=== PATIENT | female | born 1995 | race Caucasian/White ===

== ENCOUNTER 2023-06-24 14:30 | Emergency (ER) | payer OTHER, SELFPAY ==
[2023-06-24 14:41] VITALS: BP 126/97; PULSE 77; RESP 18; TEMP 36.6; O2SAT 98; BMI 27.5
--- NOTE | 2023-06-24 15:03 | CT_ITS ---
The [address] [address] Patient Name: YULIYA ALMEIDA MRN: [id number] date: 1995 Sex: F Assigned Patient Location: ER Current Patient Location: ED.MAIN Accession/Order Number: [id number] Exam Date: 06/24/2023 15:25 Report Date: 06/24/2023 15:53 At the request of: MARY SWIFT Procedure: CT head/brain wo con EXAM: CT head/brain wo con CLINICAL INDICATION: Headache TECHNIQUE: Unenhanced computerized tomography of the head was performed. Automated dose reduction technique was employed. COMPARISON: None. FINDINGS: The ventricles are normal in size, configuration, and position for age. There is no intra- or extra-axial mass, hemorrhage, or fluid collection. No areas of abnormal mass effect or attenuation are noted. Visualized paranasal sinuses are free of mucosal disease. No depressed calvarial fracture. CT/CT head/brain wo con IMPRESSION: No acute intracranial abnormality noted. Electronically authenticated by: TEODORO OWENS Date: 06/24/2023 15:53
--- NOTE | 2023-06-24 15:03 | CT_ITS ---
[address] [address] Patient Name: YULIYA ALMEIDA MRN: [id number] date: 1995 Sex: F Assigned Patient Location: ED.MAIN Current Patient Location: ED.MAIN Accession/Order Number: [id number] Exam Date: 06/24/2023 15:25 Report Date: 06/24/2023 16:28 At the request of: MARY SWIFT Procedure: CT angio neck EXAM: CT angio head, CT angio neck CLINICAL INDICATION: Headache, visual change COMPARISON: None TECHNIQUE: Contiguous axial images are obtained from the neck to the vertex before and after the administration of nonionic contrast. 2-D and 3-D reconstructions were performed to better evaluate the vasculature. NASCET criteria was utilized during interpretation of internal carotid artery stenosis. Automatic exposure control radiation dose reduction technology was utilized. FINDINGS: There are no vascular occlusions observed. The bilateral common and internal carotid arteries are grossly patent. Dominant left vertebral artery. The vertebral arteries, basilar artery and basilar artery bifurcation are otherwise normal. The posterior communicating arteries are not visualized on the source images. The internal carotid artery bifurcations, the middle cerebral artery bifurcation/trifurcation regions and the anterior communicating artery region appears normal. The posterior cerebral arteries appear intact in the visualized segments. The brain parenchyma is normal. The ventricles, basal cisterns, and sulci over the convexities are normal. Left maxillary sinus mucus retention cyst measures up to 1.6 cm. The orbits, visualized paranasal sinuses and bony calvarium are otherwise normal. The sella turcica and cavernous sinus regions appear intact. The mastoid air cells are normal. The fossa of Rosenmuller is normal. The parotid space contents and hand tube bender space contents appear intact. The parapharyngeal spaces are normal. The submandibular and sublingual space contents appear intact. The submental space is intact. The epiglottis, aryepiglottic folds, and piriform sinuses are normal. The vallecula appears normal. The larynx and trachea are normal. The thyroid lobes and esophagus appear intact. The carotid space contents are normal. There is no deep cervical chain adenopathy observed. The jugulodigastric regions appear intact. The perivertebral space contents are normal. The supraclavicular regions appear intact. The visualized mediastinum and lungs appear intact. Mild degenerative changes of the cervical spine. CT/CT angio neck IMPRESSION: No significant vascular occlusion, aneurysm or dissection. Electronically authenticated by: TEODORO OWENS Date: 06/24/2023 16:28
--- NOTE | 2023-06-24 15:03 | CT_ITS ---
[address] [address] Patient Name: YULIYA ALMEIDA MRN: [id number] date: 1995 Sex: F Assigned Patient Location: ER Current Patient Location: [facility] Accession/Order Number: [id number] Exam Date: 06/24/2023 15:25 Report Date: 06/24/2023 16:28 At the request of: MARY SWIFT Procedure: CT angio head EXAM: CT angio head, CT angio neck CLINICAL INDICATION: Headache, visual change COMPARISON: None TECHNIQUE: Contiguous axial images are obtained from the neck to the vertex before and after the administration of nonionic contrast. 2-D and 3-D reconstructions were performed to better evaluate the vasculature. NASCET criteria was utilized during interpretation of internal carotid artery stenosis. Automatic exposure control radiation dose reduction technology was utilized. FINDINGS: There are no vascular occlusions observed. The bilateral common and internal carotid arteries are grossly patent. Dominant left vertebral artery. The vertebral arteries, basilar artery and basilar artery bifurcation are otherwise normal. The posterior communicating arteries are not visualized on the source images. The internal carotid artery bifurcations, the middle cerebral artery bifurcation/trifurcation regions and the anterior communicating artery region appears normal. The posterior cerebral arteries appear intact in the visualized segments. The brain parenchyma is normal. The ventricles, basal cisterns, and sulci over the convexities are normal. Left maxillary sinus mucus retention cyst measures up to 1.6 cm. The orbits, visualized paranasal sinuses and bony calvarium are otherwise normal. The sella turcica and cavernous sinus regions appear intact. The mastoid air cells are normal. The fossa of Rosenmuller is normal. The parotid space contents and ballpoint pen cartridge tester space contents appear intact. The parapharyngeal spaces are normal. The submandibular and sublingual space contents appear intact. The submental space is intact. The epiglottis, aryepiglottic folds, and piriform sinuses are normal. The vallecula appears normal. The larynx and trachea are normal. The thyroid lobes and esophagus appear intact. The carotid space contents are normal. There is no deep cervical chain adenopathy observed. The jugulodigastric regions appear intact. The perivertebral space contents are normal. The supraclavicular regions appear intact. The visualized mediastinum and lungs appear intact. Mild degenerative changes of the cervical spine. CT/CT angio head IMPRESSION: No significant vascular occlusion, aneurysm or dissection. Electronically authenticated by: TEODORO OWENS Date: 06/24/2023 16:28
[2023-06-24 15:22] LABS: Basophils Percent Auto 0.7 % (0.2-2.0); Eosinophils Absolute Auto 0.2 10^3/uL (0.0-0.7); Eosinophils Percent Auto 3.6 % (0.9-7.0); Hematocrit 37.9 % (36.0-48.0); Immature Granulocytes Abs Auto 0.01 10^3/uL (0.00-0.03); Immature Granulocytes Pct Auto 0.2 % (0.0-0.5); Lymphocytes Percent Auto 33.7 % (20.5-60.0); Mean Corpuscular HGB Conc 34.3 g/dL (29.9-35.2); Mean Corpuscular Hemoglobin 29.8 pg (26.7-34.0); Mean Corpuscular Volume 86.9 fL (81.0-99.0); Mean Platelet Volume 9.9 fL (9.5-13.5); Monocytes Absolute Auto 0.3 10^3/uL (0.3-0.8); Monocytes Percent Auto 5.5 % (1.7-12.0); Neutrophils Absolute Auto 3.3 10^3/uL (1.4-6.5); Neutrophils Percent Auto 56.3 % (43.0-75.0); Platelet Count 290 10^3/uL (150-450); Red Blood Count 4.36 10^6/uL (4.20-5.40); Red Cell Distribution Width 12.6 % (11.0-15.0); White Blood Count 5.8 10^3/uL (4.0-11.0)
[2023-06-24 15:28] LABS: Erythrocyte Sedimentation Rate 7 mm/hr (<=20)
[2023-06-24 15:41] LABS: Alanine Aminotransferase 30 U/L (14-59); Albumin Level 3.9 g/dL (3.4-5.0); Alkaline Phosphatase 76 U/L (46-116); Anion Gap 13.6; Aspartate Amino Transferase 21 U/L (15-37); BUN Creatinine Ratio 11.7; Calcium 8.8 mg/dL (8.5-10.1); Carbon Dioxide 27.1 mmol/L (21.0-32.0); Chloride 103 mmol/L (98-107); Estimated GFR (African America >60 (>=60); Estimated GFR (Non-African Ame >60 (>=60); Globulin 3.8 g/dL; Glucose 97 mg/dL (74-106); Magnesium 1.9 mg/dL (1.8-2.4); Potassium 3.7 mmol/L (3.5-5.1); Sodium 140 mmol/L (136-145); Total Protein 7.7 g/dL (6.4-8.2)
[2023-06-24 15:43] LABS: C Reactive Protein <0.50 mg/dL (<=0.50); Troponin I High Sensitivity 14.3 pg/mL (4.0-51.3)
[2023-06-24 15:47] LABS: HCG Qualitative NEGATIVE (NEGATIVE)
--- NOTE | 2023-06-24 16:32 | ED.GENADUL1 ---
Documented by User: [email or web address] Tse 06/24/23 16:38 HPI - General Adult General Chief complaint: Headache Stated complaint: Headaches, Vision Disturbance Time Seen by Provider: 06/24/23 14:49 Source: patient Mode of arrival: walk-in Limitations: no limitations History of Present Illness HPI narrative: Patient is a 28-year-old female who presents to the emergency department for persistent headaches for the last 11 days. She states the headaches come and go. She describes them as a pressure in the bitemporal, frontal area. She states she has approximately 6-7 episodes of the headache daily. She states when the headache goes away it goes away completely. She has not had any neck pain or peripheral paresthesias. 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 She states the school nurse instructed her to come to the ER. She was seen at the [facility] emergency department last week, she had an unremarkable noncontrast CT of the brain and lab work. She also saw her PCP who ordered her to take ibuprofen 800 mg daily as needed for the headache. She has not been scheduled to have an MRI or neurology follow-up. Related Data Previous Rx's Medication Instructions Recorded ketorolac 10 mg tablet 10 mg PO TID PRN pain #10 tabs 06/24/23 metoclopramide HCl 10 mg tablet 10 mg PO Q6H PRN nausea and 06/24/23 (Reglan) vomiting #12 tabs Allergies Allergy/AdvReac Type Severity Reaction Status Date / Time No Known Drug Allergies Allergy Verified 06/24/23 14:41 Review of Systems ROS Constitutional Denies: fever or chills Eyes Reports: change in vision Ears, nose, mouth, and throat Denies: throat pain or nasal congestion Cardiovascular Denies: chest pain Respiratory Denies: shortness of breath or cough Gastrointestinal Denies: nausea or vomiting Genitourinary Denies: painful urination Musculoskeletal Denies: back pain or neck pain Integumentary/Breast Denies: rash Neurological Reports: headache and dizziness; Denies: numbness in extremities or weakness in extremities Endocrine Denies: excessive urination Hematologic/Lymphatic Denies: easy bruising PFSH PFSH Social History Smoking status: Never smoker Exam Narrative Exam Narrative: Gen.: Awake, alert, in no distress Head: Normocephalic, atraumatic ENT: Moist mucous membranes; No nuchal rigidity, no meningismus Respiratory: No respiratory distress, lungs clear bilaterally Cardio: Regular rate and rhythm Extremities: Moves extremities equally Psych: Normal mood and affect Neuro: No focal neuro deficit, No photophobia Skin: Warm, dry, intact Constitutional Vital Signs, click to edit/add: Last Vital Signs Temp 97.8 F 06/24/23 14:41 Pulse 77 06/24/23 14:41 Resp 18 06/24/23 14:41 BP 126/97 H 06/24/23 14:41 Pulse Ox 98 06/24/23 14:41 O2 Del Method Room Air 06/24/23 14:41 Course Vital Signs Vital signs: Vital Signs Temperature 97.8 F 06/24/23 14:41 Pulse Rate 77 06/24/23 14:41 Respiratory Rate 18 06/24/23 14:41 Blood Pressure 126/97 H 06/24/23 14:41 Pulse Oximetry 98 06/24/23 14:41 Oxygen Delivery Method Room Air 06/24/23 14:41 Temperature 97.8 F 06/24/23 14:41 Pulse Rate 77 06/24/23 14:41 Respiratory Rate 18 06/24/23 14:41 Blood Pressure 126/97 H 06/24/23 14:41 Pulse Oximetry 98 06/24/23 14:41 Oxygen Delivery Method Room Air 06/24/23 14:41 Medical Decision Making MDM Narrative Medical decision making narrative: Patient with no focal neurodeficits in the ER, she has stable vital signs, unremarkable labs. CT angio of the head and neck were performed with no acute process. Patient was counseled that her imaging is unremarkable, she declined medication for headache in the ER. She will be discharged home on a short course of Toradol and Reglan to follow-up with neurology. Return to the ER if symptoms change or worsen. Medical Records Medical records reviewed: Yes I reviewed the patient's medical records Lab Data Lab results reviewed: Yes I reviewed the patient's lab results Labs: Lab Results 06/24/23 Range/Units 15:14 WBC 5.8 (4.0-11.0) 10^3/uL RBC 4.36 (4.20-5.40) 10^6/uL Hgb 13.0 (12.0-16.0) g/dL Hct 37.9 (36.0-48.0) % MCV 86.9 (81.0-99.0) fL MCH 29.8 (26.7-34.0) pg MCHC 34.3 (29.9-35.2) g/dL RDW 12.6 (11.0-15.0) % Plt Count 290 (150-450) 10^3/uL MPV 9.9 (9.5-13.5) fL Neut % (Auto) 56.3 (43.0-75.0) % Lymph % (Auto) 33.7 (20.5-60.0) % Mitchell % (Auto) 5.5 (1.7-12.0) % Eos % (Auto) 3.6 (0.9-7.0) % Baso % (Auto) 0.7 (0.2-2.0) % Neut # (Auto) 3.3 (1.4-6.5) 10^3/uL Lymph # (Auto) 2.0 (1.2-3.8) 10^3/uL Mitchell # (Auto) 0.3 (0.3-0.8) 10^3/uL Eos # (Auto) 0.2 (0.0-0.7) 10^3/uL Baso # (Auto) 0.0 (0.0-0.1) 10^3/uL Abs Immat Gran (auto) 0.01 (0.00-0.03) 10^3/uL Imm/Tot Granulo (auto) 0.2 (0.0-0.5) % ESR 7 (<=20) mm/hr Sodium 140 (136-145) mmol/L Potassium 3.7 (3.5-5.1) mmol/L Chloride 103 (98-107) mmol/L Carbon Dioxide 27.1 (21.0-32.0) mmol/L Anion Gap 13.6 BUN 11.0 (7.0-18.0) mg/dL Creatinine 0.94 (0.55-1.02) mg/dL Est GFR ( Amer) >60 (>=60) Est GFR (Non-Af Amer) >60 (>=60) BUN/Creatinine Ratio 11.7 Glucose 97 (74-106) mg/dL Calcium 8.8 (8.5-10.1) mg/dL Magnesium 1.9 (1.8-2.4) mg/dL Total Bilirubin 1.0 (0.2-1.0) mg/dL AST 21 (15-37) U/L ALT 30 (14-59) U/L Alkaline Phosphatase 76 (46-116) U/L Troponin I High Sens 14.3 (4.0-51.3) pg/mL C-Reactive Protein <0.50 (<=0.50) mg/dL Total Protein 7.7 (6.4-8.2) g/dL Albumin 3.9 (3.4-5.0) g/dL Globulin 3.8 g/dL Albumin/Globulin Ratio 1.0 Serum HCG, Qual Negative (NEGATIVE) Imaging Data CT scan - head: Radiologist's impression: ITS Impressions Head CT 06/24/23 15:03 IMPRESSION: No acute intracranial abnormality noted. Electronically authenticated by: TEODORO OWENS Date: 06/24/2023 15:53 Head CTA 06/24/23 15:03 IMPRESSION: No significant vascular occlusion, aneurysm or dissection. Electronically authenticated by: TEODORO OWENS Date: 06/24/2023 16:28 Neck CTA 06/24/23 15:03 IMPRESSION: No significant vascular occlusion, aneurysm or dissection. Electronically authenticated by: TEODORO OWENS Date: 06/24/2023 16:28 Discharge Plan Discharge Chief Complaint: Headache Clinical Impression: Headache Patient Disposition: Home, Self-Care Time of Disposition Decision: 16:35 Condition: Good Prescriptions / Home Meds: New ketorolac 10 mg tablet 10 mg PO TID PRN (Reason: pain) Qty: 10 0RF metoclopramide HCl [Reglan] 10 mg tablet 10 mg PO Q6H PRN (Reason: nausea and vomiting) Qty: 12 0RF Instructions: Acute Headache (ED) Additional Instructions: Please take ketorolac with reglan as needed for headache; do not take ketorolac with ibuprofen (advil) or aleve (naproxen) Stand Alone Forms: Portal Instructions Referrals: CAROLYN ETIENNE [Physician] - 1 week Physician,Non-Staff, MD [Primary Care Provider] - 1 week Discharge Date/Time: 06/24/23 16:45 Documented by User: Sadi Ferrara MD 06/24/23 20:32 HPI - General Adult General Chief complaint: Headache Stated complaint: Headaches, Vision Disturbance Time Seen by Provider: 06/24/23 14:49 Related Data Previous Rx's Medication Instructions Recorded ketorolac 10 mg tablet 10 mg PO TID PRN pain #10 tabs 06/24/23 metoclopramide HCl 10 mg tablet 10 mg PO Q6H PRN nausea and 06/24/23 (Reglan) vomiting #12 tabs Allergies Allergy/AdvReac Type Severity Reaction Status Date / Time No Known Drug Allergies Allergy Verified 06/24/23 14:41 PFSH PFSH Social History Smoking status: Never smoker Exam Constitutional Vital Signs, click to edit/add: Last Vital Signs Temp 97.8 F 06/24/23 14:41 Pulse 77 06/24/23 14:41 Resp 18 06/24/23 14:41 BP 126/97 H 06/24/23 14:41 Pulse Ox 98 06/24/23 14:41 O2 Del Method Room Air 06/24/23 14:41 Course Vital Signs Vital signs: Vital Signs Temperature 97.8 F 06/24/23 14:41 Pulse Rate 77 06/24/23 14:41 Respiratory Rate 18 06/24/23 14:41 Blood Pressure 126/97 H 06/24/23 14:41 Pulse Oximetry 98 06/24/23 14:41 Oxygen Delivery Method Room Air 06/24/23 14:41 Temperature 97.8 F 06/24/23 14:41 Pulse Rate 77 06/24/23 14:41 Respiratory Rate 18 06/24/23 14:41 Blood Pressure 126/97 H 06/24/23 14:41 Pulse Oximetry 98 06/24/23 14:41 Oxygen Delivery Method Room Air 06/24/23 14:41 Medical Decision Making MDM Narrative Medical decision making narrative: Patient with no focal neurodeficits in the ER, she has stable vital signs, unremarkable labs. CT angio of the head and neck were performed with no acute process. Patient was counseled that her imaging is unremarkable, she declined medication for headache in the ER. She will be discharged home on a short course of Toradol and Reglan to follow-up with neurology. Return to the ER if symptoms change or worsen. I, Dr Ferrara, have reviewed the above progress note and course of action in the ER; agree with the above. I have gone over history and physical, and discussed disposition and treatment plan with the patient. Lab Data Labs: Lab Results 06/24/23 Range/Units 15:14 WBC 5.8 (4.0-11.0) 10^3/uL RBC 4.36 (4.20-5.40) 10^6/uL Hgb 13.0 (12.0-16.0) g/dL Hct 37.9 (36.0-48.0) % MCV 86.9 (81.0-99.0) fL MCH 29.8 (26.7-34.0) pg MCHC 34.3 (29.9-35.2) g/dL RDW 12.6 (11.0-15.0) % Plt Count 290 (150-450) 10^3/uL MPV 9.9 (9.5-13.5) fL Neut % (Auto) 56.3 (43.0-75.0) % Lymph % (Auto) 33.7 (20.5-60.0) % Mitchell % (Auto) 5.5 (1.7-12.0) % Eos % (Auto) 3.6 (0.9-7.0) % Baso % (Auto) 0.7 (0.2-2.0) % Neut # (Auto) 3.3 (1.4-6.5) 10^3/uL Lymph # (Auto) 2.0 (1.2-3.8) 10^3/uL Mitchell # (Auto) 0.3 (0.3-0.8) 10^3/uL Eos # (Auto) 0.2 (0.0-0.7) 10^3/uL Baso # (Auto) 0.0 (0.0-0.1) 10^3/uL Abs Immat Gran (auto) 0.01 (0.00-0.03) 10^3/uL Imm/Tot Granulo (auto) 0.2 (0.0-0.5) % ESR 7 (<=20) mm/hr Sodium 140 (136-145) mmol/L Potassium 3.7 (3.5-5.1) mmol/L Chloride 103 (98-107) mmol/L Carbon Dioxide 27.1 (21.0-32.0) mmol/L Anion Gap 13.6 BUN 11.0 (7.0-18.0) mg/dL Creatinine 0.94 (0.55-1.02) mg/dL Est GFR ( Amer) >60 (>=60) Est GFR (Non-Af Amer) >60 (>=60) BUN/Creatinine Ratio 11.7 Glucose 97 (74-106) mg/dL Calcium 8.8 (8.5-10.1) mg/dL Magnesium 1.9 (1.8-2.4) mg/dL Total Bilirubin 1.0 (0.2-1.0) mg/dL AST 21 (15-37) U/L ALT 30 (14-59) U/L Alkaline Phosphatase 76 (46-116) U/L Troponin I High Sens 14.3 (4.0-51.3) pg/mL C-Reactive Protein <0.50 (<=0.50) mg/dL Total Protein 7.7 (6.4-8.2) g/dL Albumin 3.9 (3.4-5.0) g/dL Globulin 3.8 g/dL Albumin/Globulin Ratio 1.0 Serum HCG, Qual Negative (NEGATIVE) Imaging Data CT scan - head: Radiologist's impression: ITS Impressions Head CT 06/24/23 15:03 IMPRESSION: No acute intracranial abnormality noted. Electronically authenticated by: TEODORO OWENS Date: 06/24/2023 15:53 Head CTA 06/24/23 15:03 IMPRESSION: No significant vascular occlusion, aneurysm or dissection. Electronically authenticated by: TEODORO OWENS Date: 06/24/2023 16:28 Neck CTA 06/24/23 15:03
== END 2023-06-24 16:45 | disposition home or self-care (01) ==
PROVIDERS: Physician Assistant; Emergency Provider Emergency Medicine
DX: R51.9 Headache, unspecified (principal)
CPT/HCPCS: 36415; 70450; 70496; 70498; 80053; 83735; 84484; 84703; 85025; 85652; 86140; 99285; Q9967